=== PATIENT | female | born 1980 | race Caucasian/White ===

== ENCOUNTER 2023-10-02 10:21 | Observation (INO) ==
--- NOTE | 2023-09-25 13:11 | Anesthesiology Consultation ---
Date of Service September 25, 2023 Assessment & Plan (1) Encounter for pre-operative examination: - Check test AM DOS - Infectious disease screening: Per assessment on 09/25/23: No known infectious disease contacts or current infectious disease symptoms. No noted recent Covid positive test result. - Semaglutide/Wejovy instructions: Listed as for weight loss. Patient takes on Tuesdays. Patient informed by PAT RN not to take within 7 days prior to surgery. Per PAT RN, patient took last dose 09/15/23 and will not take until after DOS. Chart Review Chart Review: Acceptable Risk for Surgery and Patient NOT seen in Pre Admission Testing History Surgery Operation Date: 10/02/23 11:40 Proposed Procedures p Robotic Laparoscopic Removal of the Uterus and Both Fallopian Tubes, Possible Removal of One or Both Ovaries (If Indicated), Cystoscopy - Mark Pedro MD, FACOG Height/Weight Height: 5 ft 6 in Weight: 70.307 kg Allergies Allergy/AdvReac Type Severity Reaction Status Date / Time Sulfa (Sulfonamide AdvReac Mild Rash (see Verified 09/25/23 13:08 Antibiotics) comments) peanut AdvReac Unknown Diarrhea Verified 09/25/23 13:08 Medications Home Medications Medication Instructions Recorded Confirmed Last Taken cyclobenzaprine 10 mg tablet 10 mg PO TID PRN Muscle Spasm 11/15/22 09/25/23 1 Month Ago ~10/16/22 elderberry fruit 2 cap PO DAILY 09/23/23 09/25/23 Unknown doxycycline hyclate 50 mg capsule 50 mg PO QPM 09/25/23 09/25/23 Unknown magnesium 2 tab PO HS PRN muscle cramping 09/25/23 09/25/23 Unknown multivitamin with iron (Hair 1 tab PO DAILY 09/25/23 09/25/23 Unknown Vitamins tablet) semaglutide (weight loss) 2.4 2.4 mg subcut Q7D 09/25/23 09/25/23 Unknown mg/0.75 mL subcutaneous pen injector (Wegovy) Past Medical History Medical History Alopecia Bartholin gland cyst Dysmenorrhea Hx of menorrhagia Hx of migraines Past Family History Family History Grandfather (Maternal) Myocardial infarction Brother Hypertension Mother Hypertension Denies family history of Ovarian cancer Prostate cancer Breast cancer Colorectal cancer Past Surgical History Surgical History H/O colonoscopy History of colon surgery resection of cecum and ileum (endometriosis) History of colposcopy with cervical biopsy History of esophagogastroduodenoscopy (EGD) Slow to wake up after anesthesia [place] teeth extracted Social History Smoking Status: Never smoker Do You Dip or Chew Tobacco: No Hx Alcohol Use: Yes alcohol intake frequency: holidays/special occasions only Hx Substance Use: No substance use type: does not use Lab Results Anesthesia Preop Results Results Anesthesia Widget: WBC 6.74 K/ul (4.8-10.8) 09/23/23 Hgb 12.7 g/dl (12.0-16.0) 09/23/23 Hct 39.4 % (37.0-47.0) 09/23/23 Plt 303 K/uL (130-400) 09/23/23 Na 139 mmol/L (136-145) 09/23/23 K 4.4 mmol/L (3.5-5.1) 09/23/23 Cl 105 mmol/L (98-107) 09/23/23 CO2 28 mmol/L (21-32) 09/23/23 BUN 16 mg/dl (6-23) 09/23/23 Creat 0.72 mg/dl (0.6-1.2) 09/23/23 Glucose Level 93 mg/dl (70-99(Fasting)) 09/23/23 TSH 1.001 uIu/ml (0.300-4.500) 09/23/23
[2023-10-02] MEDS: LR 15ML/HR IV SCH (11:00)
[2023-10-02] MEDS: PHENAZOPYRIDINE HCL 100 MG TAB PO SCH (11:01)
[2023-10-02] MEDS: LACTATED RINGER'S 1,000 ML IV SCH ×2 (11:01→18:48)
[2023-10-02] MEDS ORDERED: ePHEDrine sulfate 50 MG/ML AMP IV PRN (11:45)
[2023-10-02] MEDS ORDERED: ATROPINE SULFATE 0.1 MG/ML 10ML SYR IV PRN (11:45)
[2023-10-02] MEDS ORDERED: ONDANSETRON INJ 2 MG/ML 2 ML VIAL IV PRN ×2 (11:45→17:04)
[2023-10-02] MEDS ORDERED: HYDROmorphone INJ 1 MG/ML SYRINGE IV PRN (11:45)
[2023-10-02] MEDS ORDERED: DEXAMETHASONE SOD INJ 4 MG/ML VIAL ONE (13:11)
[2023-10-02] MEDS ORDERED: PROPOFOL IV EMULSION 10 MG/ML 20 ML VIAL IV ONE (13:11)
[2023-10-02] MEDS ORDERED: ONDANSETRON INJ 2 MG/ML 2 ML VIAL ONE (13:11)
[2023-10-02] MEDS ORDERED: ROCURONIUM BROMIDE 10 MG/ML 5 ML VIAL IV ONE (13:11)
[2023-10-02] MEDS ORDERED: fentaNYL citrate PF 100 MCG/2 ML VIAL ONE ×2 (13:12→15:35)
[2023-10-02] MEDS ORDERED: MIDAZOLAM HCL 1 MG/ML 2ML VIAL ONE (13:12)
--- NOTE | 2023-10-02 13:56 | History & Physical Bridge Note ---
Date of Service October 02, 2023 History & Physical Bridge Note I have examined the patient, reviewed the History & Physical and in the interval since the performance of the History & Physical I have noted the following changes of clinical significance: no changes noted
[2023-10-02] MEDS: ceFAZolin 2000MG 2,000 MG/15 ML SYR IV SCH (14:43)
[2023-10-02] MEDS ORDERED: SUGAMMADEX SODIUM 200 MG/2 ML VIAL IV ONE ×2 (15:48→16:46)
[2023-10-02] MEDS: TISSEEL FIBRIN SEALANT 4ML TOP ONE (16:44)
[2023-10-02] MEDS ORDERED: KETOROLAC 30 MG/ML VIAL ONE (16:45)
--- NOTE | 2023-10-02 16:52 | Operative Report ---
PG Post Operative Report Pre & Post Diagnosis Operation Date: 10/02/23 12:05 Pre-Op Diagnosis: Menorrhagia, Endometriosis Post-Op Diagnosis: Menorrhagia, Endometriosis I identified the patient and participated in the time-out.: Yes Procedure Operation Date: 10/02/23 12:05 Actual Procedures p Robotic assisted Laparoscopic Hysterectomy, bilateral salpingectomy, Right oopherectomy, Cystoscopy(Not Applicable) - Mark Pedro MD, FACOG Evaluation of rectum -Dr. Ace Ace DO Surgeon Rosa Cordova DO [place] [facility] Dr. Pedro Estimated Blood Loss 0 Findings See Below Rectum intact, without compromise or injury during hysterectomy Specimens None Drains None Anesthesia Type General Complications None Description of Procedure I was called into the operating room for evaluation of the sigmoid colon and rectum during the hysterectomy considering the vaginal cuff of the uterus appeared to be adhered to the rectum. The start of this procedure can be found separately dictated in Dr. Pedro's operative report as well as hysterectomy and final stages of the operation. After the hysterectomy was completed, at the robotic console, I evaluated the rectum and there was no injury or damage caused to the rectum. Reactive peritoneal tissue anterior to the rectum had been pulled up to the posterior aspect of the vaginal cuff but this was left safely alone during Dr. Pedro's dissection for hysterectomy and the rectal tissue was left intact. Please refer to Dr. Pedro's dictation for the remaining details of the procedure. I attest to the content of the Intraoperative Record and any orders documented therein. Any exceptions are noted below.
[2023-10-02] MEDS: BUPIVACAINE 0.5 % 5 MG/1 ML MPF 30ML VIAL ONE (16:53)
[2023-10-02] MEDS ORDERED: ACETAMINOPHEN 325 MG TAB PO PRN (17:04)
[2023-10-02] MEDS ORDERED: oxyCODONE/ACETAMINOPHEN 5mg/325mg TAB PO PRN (17:04)
--- NOTE | 2023-10-02 17:13 | Operative Report ---
PG Post Operative Report Pre & Post Diagnosis Operation Date: 10/02/23 12:05 Pre-Op Diagnosis: Menorrhagia, Endometriosis Post-Op Diagnosis: Menorrhagia, Endometriosis I identified the patient and participated in the time-out.: Yes Procedure Operation Date: 10/02/23 12:05 Actual Procedures p Robotic assisted Laparoscopic Hysterectomy, bilateral salpingectomy, Right oopherectomy, Cystoscopy(Not Applicable) - Mark Pedro MD, FACOG Surgeon Mark Pedro MD, FACOG Boat Person Dr. Pedro Estimated Blood Loss 20 Findings See Below Specimens Uterus cervix fallopian tubes bilaterally right ovary Anesthesia Type General Description of Procedure Patient received preoperative antibiotics. SCDs applied to legs and was given a general anesthetic she was then placed in dorsolithotomy position in yellowfin Shahzad stirrups care was taken to avoid any undue compression on her body she was then prepped and draped. Full timeout was performed. Bladder was then drained with a Calhoun catheter, a Vcare manipulator was then placed into the uterus. Gloves were changed and then a supraumbilical incision was made with scalpel on the skin and cutting down through the subcutaneous fat cutting the fascia the rectus muscles and then passing through the parietal peritoneum to allow insertion of the Joseph blunt tipped trocar balloon was inflated to stabilize. Carbon dioxide gas was then used to insufflate the abdomen. Laparoscope was inserted to visualize the upper abdomen which was normal there was no sign of visceral organ injury. Port sites were identified on the left and right side these were marked and then local anesthetic injected once in size the robotic ports were placed on the left and right side under direct visualization and then a 5 mm bladeless port was placed in the left upper quadrant under direct visualization. Deep Trendelenburg position was then obtained. Note 3 robotic ports were placed 1 in the left which was the bipolar [place] on the right side arm 3 was the monopolar elida and none for was the ProGrasp these were all used during the case and manipulation to allow exposure Findings: Endometriosis with adhesions of both ovaries in the posterior aspect of the uterus pushing up against the reflection of the colon centrally the left ovary was stuck against the sidewall of the adhesions of the omentum on the left side anteriorly in the abdomen the bladder flap was clear the right ovary was attached to the posterior aspect of the uterus significantly stage IV endometriosis The left side was initially difficult to see the ureter through the peritoneum so the broad ligament was opened I dissected into the broad ligament identifying the left ureter which actually followed a course higher on the left pelvic sidewall than typical this was followed down to near the ovary. And then descended bilaterally after them I was able to identify the blood supply between the ovary and the uterus and coagulating cut this we were well away from the ureter the ovary was peeled off against the back wall of the uterus on that left side. At this stage I also was able to peel off the right side ovary however much of this ovary was inflammatory and later we would remove the ovary is minimal normal ovary tissue remained. the fallopian tubes were identified first on the left side and it was mobilized from its distal attachments near the ovary, then mobilized it's attachments all the way to the uterus where it was maintained for attachment, Round ligament identified coagulated and cut and then the uterine vessels were skeletonized carefully using minimal electrosurgery and fully exposing the artery and vein. The bladder flap was carefully dissected away using judicious amounts of electrosurgery once the bladder flap was fully dissected away from the cervicovaginal junction attention was placed back to the uterine vessels which were coagulated with the bipolar [place] and cut with the monopolar elida we were well away from the left ureter at this time. Attention to the right side this was far more free and the ureter was easily seen through the peritoneum on the pelvic sidewall the ovary on the right side was freed as mentioned from its attachment the back wall of the uterus we were well away from the colon initially I was concerned about the colon being nearby however once the ovary was freed and I was able to push down we were well away from the bowel where our posterior aspect of the Vcare cup was identified. I did have Dr. Cordova from general surgery during this part of the case and she concurred we were not near the bowel and an has dictated a brief operative note as well. Colpotomy was then performed using the monopolar elida initially starting anterior but then completing the colpotomy completely. Once the uterus was freed from its attachments this was pulled into the vagina and removed and a s ponge in a glove was placed in the vagina to maintain pneumoperitoneum. Instrument exchange was performed arm #1 became the Cobra grasper arm #3 became with the Corky needle cmv driver. 12 inch 2-0 V-Loc suture was passed vaginally into the peritoneal cavity and then vaginal cuff closure was begun on the left side taking at least 1 cm full-thickness bites of the vagina including mucosa suturing was done from anterior to posterior. Once we are fully across to the right corner it was continued back to at least fpc towards the middle of the vaginal cuff. Suture was cut to allow no tail, by the certified first assistant through scissors through the accessory port needle was then grasped by undocking the arm #1 and using a needle cmv driver to extract the needle through that robotic port. Should be noted we had good thickness bites the posterior wall was fairly thickened inflammatory and I was not able to connect the peritoneum as this would have been too wide a bite but we had good full-thickness bites Generous irrigation with sterile saline and suction, hemostasis excellent, Tisseal applied to pedicles. Cystoscopy performed and no injury to the bladder, no sutures noted, good strong jets were noted from both right and left ureter openings. Cystoscope removed, bladder drained. Robot undocked, instruments, ports removed. gas allowed to escape. Incisions injected with Marcaine, fascia closed in the umbilica incision carefully with 0- vicryl and a deep stitch into the accessory port with 0-Vicryl. 4-0 subcuticular skin closures on all incisions, dermabond apllied. Sponge and instrument counts correct. I attest to the content of the Intraoperative Record and any orders documented therein. Any exceptions are noted below. KEYBOARDING CLERK Major Procedure Codes Hysterectomy 38908 TLH <250g +S/O
[2023-10-02] MEDS: fentaNYL citrate PF 100 MCG/2 ML VIAL IV PRN (17:39)
--- NOTE | 2023-10-02 17:56 | Anesthesiology Progress Note ---
Date of Service October 02, 2023 Anesthesia Post Procedure Vital Signs Vital Signs: Temp Pulse Resp BP Pulse Ox O2 Del Method O2 Flow Rate 10/02/23 17:45 75 13 118/74 92 Room Air 10/02/23 17:35 81 13 121/86 97 Room Air 10/02/23 17:25 80 15 122/79 100 Oxymask 5 10/02/23 17:17 36 C L 89 21 128/87 100 Oxymask 5 10/02/23 10:49 36.8 C 67 18 123/98 98 Room Air Pain Intensity Abdomen: Pain Intensity: 4 Transfer of Care Handoff Completed per policy Notes Mental Status: alert / awake / arousable Patient Amnestic to Procedure: Yes Nausea / Vomiting: adequately controlled Pain: adequately controlled Airway Patency, RR, SpO2: stable & adequate BP & HR: stable & adequate Hydration State: stable & adequate Anesthetic Complications: no major complications apparent and Pt Satisfied with anesthetic care
[2023-10-02] MEDS: HYDROmorphone INJ 0.5 MG/0.5 ML SYR IV STA (19:45)
[2023-10-02] MEDS ORDERED: HYDROmorphone INJ 0.5 MG/0.5 ML SYR IV PRN (19:45)
[2023-10-02] MEDS: KETOROLAC 30 MG/ML VIAL IV PRN (23:18)
--- OUTSIDE RECORDS SUMMARY | 2023-10-02 23:56 | External Medical Summary | Summary of Care ---
Author Name Unknown Organization [facility] Address [address] [place] [address] Phone [phone] Care Team Providers Care Breaster Name Role Phone Tatiana Jones DO Primary Care Provider [phone] Reason for Visit * Reason Onset Date Comments Letter Requests 09/29/2023 Encounter Details Date Type Department Care Team ([facility] st Contact Info) Description 09/29/2023 Telephone Family Practice [facility] [address] [facility] [place] [address] Tatiana Jones DO [address] [facility] [place] [address] Letter Requests Allergies Active Allergy Reactions Criticality Noted Date Comments Food (See Comments) Allergy test positive,Diarrhea 07/19/2010 Peanuts. Pt thinks she is fine w this now. Sulfa Antibiotics 08/22/2005 ? Rash Pt thinks she is fine w this now. documented as of this encounter (statuses as of 09/29/2023) Medications Medication Sig Dispensed Refills Start Date End Date Status Multiple Vitamins-Minerals (MULTIVITAMIN ADULT) TABS once. 0 Active Probiotic Product (PROBIOTIC & ACIDOPHILUS EX ST) Capsule Take 1 Capsule by mouth in the morning and 1 Capsule at noon and 1 Capsule in the evening. Take with meals. 0 Active Cyclobenzaprine HCl 10 MG Oral Tablet (Flexeril) Take 1 Tablet by mouth in the morning and 1 Tablet at noon and 1 Tablet before bedtime. 0 Active Dicyclomine HCl 20 MG Oral Tablet (Bentyl) Take 1 Tablet by mouth 4 times a day as needed (abd cramps). For abdominal pain 120 Tablet 1 11/14/2022 Active Naproxen 500 MG Oral Tablet (Naprosyn)Indicatio ns:Paresthesias in right hand,Neck pain Take 1 Tablet by mouth 2 times a day as needed for Pain. With food 40 Tablet 1 02/13/2023 Active Wegovy 2.4 MG/0.75ML Subcutaneous Solution Auto-injector (Semaglutide-Weight Management)Indicati ons:Abnormal weight gain Inject 2.4 mg (1 pen) under the skin once a week. 9 mL 1 07/17/2023 Active Doxycycline Hyclate 50 MG Oral Capsule (Vibramycin) Take 1 Capsule by mouth in the morning. 30 Capsule 0 09/17/2023 10/17/2023 Active documented as of this encounter (statuses as of 09/29/2023) Active Problems Problem Noted Date Diagnosed Date Food insecurity 11/17/2022 Overview: Per [facility] Protocol History of small bowel obstruction 11/14/2022 Acne 04/20/2014 Hirsutism 04/20/2014 Benign neoplasm of colon 10/21/2010 ADVANCE DIRECTIVE INFORMATION 10/02/2009 Overview: no Hereditary disease in family possibly affecting fetus, affecting management of mother, antepartum condition or complication 10/02/2009 Encounter for supervision of other normal pregna ncy 08/03/2009 Overview: Hx of quad per patient which was nml ICD-10 update of inactive term Family history of other condition 08/03/2009 Overview: 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 echo wnl but septum fair. 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 Bartholin's gland cyst 07/08/200808/03 CELLULITIS, LEFT LABIA 07/08/200808/03 Other allergic rhinitis 05/19/200607/14 Overview: ICD-10 update of inactive term Other general counseling and advice for contraceptive management 08/22/2005 08/03/2009 PURE HYPERCHOLESTEROLEM 08/22/200506/12 Overview: Per Lipid Taxonomy. Other acne 04/14/2003 08/03/2009 documented as of this encounter (statuses as of 09/29/2023) Immunizations Name Administration Dates Next Due Seasonal Influenza, Split, IIV3, With Preserve, Inj 07/26/2012 TDAP (age 10 and older)(Boostrix) 12/06/2021 TDAP (age 11 and older)(Adacel) 12/19/2007 documented as of this encounter Social History Tobacco Use Types Packs/Day Years Used Date Smoking Tobacco: Never Smokeless Tobacco: Never Alcohol Use Standard Drinks/Week Comments No 0 (1 standard drink = 0.6 oz pur e alcohol) rare PHQ-2 Answer Date Recorded PHQ Adult Total Score 1 11/14/2022 Hunger Vital Sign Answer Date Recorded Within the past 12 months, y ou worried that your food would run out before you got the money to buy more. Sometimes true Within the past 12 months, t he food you bought just didn't last and you didn't have money to get more. Sometimes true 11/2022 Sex and Gender Information Value Date Recorded Sex Assigned at Not on file Gender Identity Not on file Sexual Orientation Not on file Job Start Date Occupation Industry Not on file Not on file Not on file documented as of this encounter Miscellaneous Notes * Telephone Encounter - Zhane Lakhani RN - 09/29/2023 1:48 PM EDT Placed at front sight attacher for waste picker. Called and left message on identified voice mail to notify pt. * Telephone Encounter - Tatiana Jones DO - 09/29/2023 1:06 PM EDT Letter written, on my desk Please call patient to waste picker * Telephone Encounter - Felecia Amos OSA - 09/29/2023 12:41 PM EDT Type of letter requested: Insurance Does the letter need to provide any specific information: need a letter on [facility] letter head with provider date and signature and a list of patient's diagnosis along with medication list used to treat Would you like letter faxed or picked up?: waste picker Fax number: n/a Number to be called when ready to be picked up: [phone] Date needed: n/a documented in this encounter Plan of Treatment Upcoming Encounters Date Type Department Care Team (Late st Contact Info) Description 03/25/2024 12:40 PM EDT Office Visit Nutrition & Weight Management, [facility] [address] [facility] [place] [address] Carolyn Matta PA-C [address] [facility] [place] [id number] Scheduled Procedures Name Priority Associated Diagnoses Date/Ti me COLONOSCOPY FLEXIBLE PROXIMAL DIAGNOSTIC Recall History of colon polyps Health Maintenance Due Date Last Done Comments Hepatitis C Screening 1997 Hepatitis B (1 of 3 - 19+ 3-dose series) 1998 Pap Smear 04/09/2021 04/09/2018, 08/14 (Done elsewhere), 07/16/2012 (Done elsewhere), Additional history exists COVID-19 Vaccine (2022- season) 2023 Influenza Vaccine (FLU shot) (#1) 2023 07/26/2012 Depression Screening 11/15/2023 11/14/2022, 05/15/2017 (Declined) Mammogram 04/24/2024 04/24/2023, 04/12, 04/18/2022, Additional history exists Diabetes Screening 11/14/2025 11/14/2022, 1 , 12/13/2021, Additional history exists Cervical Cancer Screening 07/26/2026 HPV/Co-Test 07/26/2026 07/26/2021 Lipid Panel 12/13/2026 12/13/2021, 06/13, 12/01/2014 COLONOSCOPY-EVERY 5 YRS AGES 18-100 01/31/2028 01/30/2023, 01/30/2023, 07/03/2017, Additional history exists DTaP,Tdap,and Td Vaccines (3 - Td or Tdap) 12/07/2031 12/06/2021, 12/19/2007 GARDASIL-HPV IMMUNIZATION SERIES Aged Out No longer eligible based on patient's age to complete this topic MENINGOCOCCAL (MENACTRA/MENVEO) Aged Out No longer eligible based on patient's age to complete this topic Pneumococcal Vaccine: Pediatrics (0 to 5 Years) and At-Risk Patients (6 to 64 Years) Aged Out No longer eligible based on patient's age to complete this topic documented as of this encounter Medical Devices Not on filedocumented as of this encounter Care Teams Breaster Relationship Specialty Start Date End Date Tatiana Jones DO [address] [place] [id number] PCP - General Family Medicine 11/14/22 documented as of this encounter
[2023-10-03] MEDS: oxyCODONE/ACETAMINOPHEN 5mg/325mg TAB PO PRN (05:07)
[2023-10-03] MEDS: IBUPROFEN 600 MG TAB PO PRN (05:07)
[2023-10-03 07:33] LABS: Hematocrit (blood only) 37.6 % (37.0-47.0); Hemoglobin 12.5 g/dl (12.0-16.0); Mean Corpuscular Hemoglobin 26.8 pg (25.0-34.0); Mean Corpuscular Hgb Conc 33.2 g/dL (32.0-36.0); Mean Corpuscular Volume 80.5 fL (80.0-100.0); Mean Platelet Volume 10.2 fL (9.4-12.4); Platelet Count 273 K/uL (130-400); RDW Coefficient of Variation 14.4 % (11.5-14.5); RDW Standard Deviation 42.4 fL (36.4-46.3); Red Blood Count 4.67 M/uL (4.20-5.40); White Blood Count 11.72 K/ul (4.8-10.8)
--- NOTE | 2023-10-03 08:31 | Gynecologic Progress Note ---
Date of Service October 03, 2023 Assessment & Plan (1) Menorrhagia: Plan: Postoperative day #1 meets discharge criteria limitations discussed the complexity of her case was discussed including the extensive adhesions of the back wall of the uterus and the ovaries and the removal of the right ovary we discussed the findings if she has any problems she will call me before she will be discharged home instructions reviewed pain medication has been sent already and we will see her in 2 weeks in the office Admission and Anticipated Discharge Date Admission Date: October 02, 2023 Subjective Postop day #1 from laparoscopic hysterectomy and hysterectomy was completed late due to timing of operative cases yesterday and it was a complex case so the decision was made to observe her overnight. The patient currently is doing well she is ambulating peeing well her pain is well-controlled she is having no bleeding and no extremity pain Physical Exam Constitutional: WD/WN, vitals as above well developed and well nourished Respiratory: normal respiratory effort, lungs clear to auscultation normal respiratory effort Cardiovascular: RRR, no murmur, no edema Gastrointestinal (Abdomen): normal bowel sounds, soft, nontender, no hepatosplenomegaly Results & Data Vital Signs (Past 12 Hours) Vital Signs Temp Pulse Resp BP Pulse Ox O2 Del Method 10/03/23 03:14 98.1 F 72 18 108/68 98 Room Air 10/02/23 22:26 97.7 F 86 18 137/88 100 Room Air PG Care Time/CCT Total # of Minutes Spent Total Time Spent with Patient: Total time spent is greater than 50% in coordination of care (as documented) at patient's floor/unit and/or counseling patient: Coding Level of Care Code None Diagnoses Menorrhagia N92.0
== END 2023-10-03 10:13 | disposition home or self-care (01) ==
LOC: ASU 10:21 → 4E1 10:21
DX: N92.0 Excessive and frequent menstruation with regular cycle; N80.9 Endometriosis, unspecified; Z88.2 Allergy status to sulfonamides; Z79.899 Other long term (current) drug therapy; Z91.010 Allergy to peanuts